=== PATIENT | male | born 1955 | race Caucasian/White ===

== ENCOUNTER 2020-05-31 15:24 | Inpatient (IN) ==
[2020-06-01] MEDS ORDERED: Nystatin Cream 15 GM TUBE TP PRN (17:35)
[2020-06-01] MEDS ORDERED: Warfarin perPT PO PRN (18:00)
[2020-06-01] MEDS ORDERED: Dextrose Gel 15 GM/37.5 ML TUBE PO PRN ×2 (18:28)
[2020-06-01] MEDS ORDERED: D5% in Water 1,000 ML IVC PRN (18:28)
[2020-06-01] MEDS ORDERED: *HR* Dextrose 50 % in Water (Vial) 50 ML VIAL IVP PRN (18:28)
[2020-06-01] MEDS ORDERED: *HR* Warfarin 3 MG TABLET PO SCH (19:00)
[2020-06-01] MEDS: Lactobacillus 1 EACH CAP.SPRINK PO SCH (20:55)
[2020-06-01] MEDS: Bumetanide 1 MG TABLET PO SCH (20:55)
[2020-06-01] MEDS: Insulin LISPRO 300 UNITS/3 ML VIAL SUBQ SCH (20:59)
[2020-06-01] MEDS ORDERED: FLAXSEED OIL 2000 MG PO SCH (21:00)
[2020-06-01] MEDS: QUINIDINE GLUCONATE 324 MG PO SCH (21:00)
[2020-06-02 05:54] LABS: Hematocrit 33.4 % (37.5-50.1); Hemoglobin 10.7 g/dL (12.9-16.9); Mean Corpuscular Hemoglobin 26.8 pg (28.0-33.3); Mean Corpuscular Volume 83.7 fL (83.0-100.0); Mean Platelet Volume 10.9 fL (9.4-12.4); Platelet Count 203 K/mcL (140-400); Red Blood Count 3.99 M/mcL (4.19-5.50); Red Cell Distribution Width 20.4 % (11.5-14.5); White Blood Count 5.7 K/mcL (4.3-11.1)
[2020-06-02 06:30] LABS: BUN/Creatinine Ratio 19 (6-26); Blood Urea Nitrogen 13 mg/dL (8-23); Calcium 8.3 mg/dL (8.6-10.3); Carbon Dioxide 30 mEq/L (23-29); Chloride 103 mEq/L (98-107); Glucose 119 mg/dL (70-105); Osmolality,Calculated 291 (280-300); Potassium 3.9 mEq/L (3.5-5.1); Sodium 140 mEq/L (136-145); eGFR For African Americans > 60 (> 60); eGFR For Non-African Americans > 60 (> 60)
[2020-06-02 06:31] LABS: INR 2.3; Prothrombin Time 25.7 Seconds (9.4-12.1)
[2020-06-02] MEDS: Insulin LISPRO 300 UNITS/3 ML VIAL SUBQ SCH ×4 (08:33→20:58)
[2020-06-02] MEDS: CABOZANTINIB S MALATE 20 MG PO SCH (08:38)
[2020-06-02] MEDS: *HR* Digoxin 0.125 MG TABLET PO SCH (08:38)
[2020-06-02] MEDS: Lactobacillus 1 EACH CAP.SPRINK PO SCH ×2 (08:38→20:54)
[2020-06-02] MEDS: carvediloL 6.25 MG TABLET PO SCH ×2 (08:38→16:43)
[2020-06-02] MEDS: Bumetanide 1 MG TABLET PO SCH ×2 (08:38→16:43)
[2020-06-02] MEDS: QUINIDINE GLUCONATE 324 MG PO SCH ×2 (08:39→21:00)
[2020-06-02] MEDS: levoFLOXacin 750 MG TABLET PO SCH (16:44)
[2020-06-02] MEDS ORDERED: *HR* Warfarin 3 MG TABLET PO ONE (18:00)
[2020-06-02] MEDS: Acetaminophen 325 MG TABLET PO PRN (20:54)
[2020-06-02] MEDS: Doxycycline 100 MG CAPSULE PO SCH (20:54)
[2020-06-03 07:17] LABS: Prothrombin Time 23.1 Seconds (9.4-12.1)
[2020-06-03] MEDS: Insulin LISPRO 300 UNITS/3 ML VIAL SUBQ SCH ×4 (08:03→21:26)
[2020-06-03] MEDS: Lactobacillus 1 EACH CAP.SPRINK PO SCH ×2 (08:07→21:24)
[2020-06-03] MEDS: levoFLOXacin 750 MG TABLET PO SCH (08:07)
[2020-06-03] MEDS: carvediloL 6.25 MG TABLET PO SCH ×2 (08:07→17:01)
[2020-06-03] MEDS: Doxycycline 100 MG CAPSULE PO SCH ×2 (08:07→21:25)
[2020-06-03] MEDS: *HR* Digoxin 0.125 MG TABLET PO SCH (08:07)
[2020-06-03] MEDS: Bumetanide 1 MG TABLET PO SCH ×2 (08:07→17:00)
[2020-06-03] MEDS: CABOZANTINIB S MALATE 20 MG PO SCH (08:08)
[2020-06-03] MEDS: QUINIDINE GLUCONATE 324 MG PO SCH ×2 (08:08→21:26)
[2020-06-03] MEDS ORDERED: *HR* Warfarin 2 MG TABLET PO ONE (18:00)
[2020-06-03] MEDS: Acetaminophen 325 MG TABLET PO PRN (21:24)
[2020-06-04] MEDS: Acetaminophen 325 MG TABLET PO PRN ×3 (05:42→23:37)
[2020-06-04 08:09] LABS: INR 1.9
[2020-06-04] MEDS: Bumetanide 1 MG TABLET PO SCH ×2 (08:34→16:53)
[2020-06-04] MEDS: *HR* Digoxin 0.125 MG TABLET PO SCH (08:34)
[2020-06-04] MEDS: Doxycycline 100 MG CAPSULE PO SCH ×2 (08:34→20:36)
[2020-06-04] MEDS: Lactobacillus 1 EACH CAP.SPRINK PO SCH ×2 (08:34→20:36)
[2020-06-04] MEDS: carvediloL 6.25 MG TABLET PO SCH ×2 (08:34→16:53)
[2020-06-04] MEDS: levoFLOXacin 750 MG TABLET PO SCH (08:34)
[2020-06-04] MEDS: QUINIDINE GLUCONATE 324 MG PO SCH ×2 (08:35→20:40)
[2020-06-04] MEDS: Insulin LISPRO 300 UNITS/3 ML VIAL SUBQ SCH ×4 (08:35→20:34)
[2020-06-04] MEDS: CABOZANTINIB S MALATE 20 MG PO SCH (08:36)
[2020-06-04] MEDS ORDERED: *HR* Warfarin 2 MG TABLET PO ONE (18:00)
[2020-06-05 07:15] LABS: INR 1.8; Prothrombin Time 20.9 Seconds (9.4-12.1)
[2020-06-05] MEDS: carvediloL 6.25 MG TABLET PO SCH ×2 (07:54→17:07)
[2020-06-05] MEDS: levoFLOXacin 750 MG TABLET PO SCH (07:54)
[2020-06-05] MEDS: Doxycycline 100 MG CAPSULE PO SCH ×2 (07:54→21:37)
[2020-06-05] MEDS: Lactobacillus 1 EACH CAP.SPRINK PO SCH ×2 (07:54→21:37)
[2020-06-05] MEDS: Bumetanide 1 MG TABLET PO SCH ×2 (07:54→17:07)
[2020-06-05] MEDS: CABOZANTINIB S MALATE 20 MG PO SCH (07:55)
[2020-06-05] MEDS: *HR* Digoxin 0.125 MG TABLET PO SCH (07:55)
[2020-06-05] MEDS: Insulin LISPRO 300 UNITS/3 ML VIAL SUBQ SCH ×4 (07:55→21:42)
[2020-06-05] MEDS: QUINIDINE GLUCONATE 324 MG PO SCH ×2 (07:55→21:37)
[2020-06-05] MEDS: Acetaminophen 325 MG TABLET PO PRN ×2 (17:07→23:35)
[2020-06-05] MEDS ORDERED: *HR* Warfarin 5 MG TABLET PO ONE (18:00)
[2020-06-06 06:27] LABS: Prothrombin Time 22.5 Seconds (9.4-12.1)
[2020-06-06] MEDS: Insulin LISPRO 300 UNITS/3 ML VIAL SUBQ SCH ×4 (07:47→20:50)
[2020-06-06] MEDS: Lactobacillus 1 EACH CAP.SPRINK PO SCH ×2 (07:48→20:50)
[2020-06-06] MEDS: levoFLOXacin 750 MG TABLET PO SCH (07:48)
[2020-06-06] MEDS: Bumetanide 1 MG TABLET PO SCH ×2 (07:48→16:40)
[2020-06-06] MEDS: Doxycycline 100 MG CAPSULE PO SCH ×2 (07:48→20:50)
[2020-06-06] MEDS: carvediloL 6.25 MG TABLET PO SCH ×2 (07:48→16:40)
[2020-06-06] MEDS: *HR* Digoxin 0.125 MG TABLET PO SCH (07:48)
[2020-06-06] MEDS: QUINIDINE GLUCONATE 324 MG PO SCH ×2 (07:50→20:50)
[2020-06-06] MEDS: CABOZANTINIB S MALATE 20 MG PO SCH (07:52)
[2020-06-06] MEDS: SEMAGLUTIDE 1 MG SQ SCH (16:41)
[2020-06-06] MEDS: Acetaminophen 325 MG TABLET PO PRN (17:36)
[2020-06-06] MEDS ORDERED: *HR* Warfarin 5 MG TABLET PO ONE (18:00)
[2020-06-07] MEDS: Acetaminophen 325 MG TABLET PO PRN ×3 (06:52→23:13)
[2020-06-07 07:04] LABS: INR 2.1; Prothrombin Time 23.3 Seconds (9.4-12.1)
[2020-06-07] MEDS: Insulin LISPRO 300 UNITS/3 ML VIAL SUBQ SCH ×4 (07:56→20:16)
[2020-06-07] MEDS: *HR* Digoxin 0.125 MG TABLET PO SCH (07:56)
[2020-06-07] MEDS: Lactobacillus 1 EACH CAP.SPRINK PO SCH ×2 (07:56→20:15)
[2020-06-07] MEDS: Doxycycline 100 MG CAPSULE PO SCH ×2 (07:56→20:15)
[2020-06-07] MEDS: carvediloL 6.25 MG TABLET PO SCH ×2 (07:56→16:48)
[2020-06-07] MEDS: Bumetanide 1 MG TABLET PO SCH ×2 (07:57→16:48)
[2020-06-07] MEDS: QUINIDINE GLUCONATE 324 MG PO SCH ×2 (07:57→20:16)
[2020-06-07] MEDS: levoFLOXacin 750 MG TABLET PO SCH (07:57)
[2020-06-07] MEDS: CABOZANTINIB S MALATE 20 MG PO SCH (09:43)
[2020-06-07] MEDS ORDERED: *HR* Warfarin 2 MG TABLET PO ONE (18:00)
[2020-06-08 06:26] LABS: Basophils % 0.8 %; Eosinophils # 0.2 K/mcL (0.0-0.6); Eosinophils % 2.9 %; Hematocrit 35.1 % (37.5-50.1); Hemoglobin 11.4 g/dL (12.9-16.9); Immature Granulocytes % 0.8 % (0-4); Mean Corpuscular HGB Conc 32.5 g/dL (31.6-35.5); Mean Corpuscular Hemoglobin 27.4 pg (28.0-33.3); Mean Corpuscular Volume 84.4 fL (83.0-100.0); Mean Platelet Volume 11.2 fL (9.4-12.4); Monocytes # 0.6 K/mcL (0.0-1.3); Monocytes % 12.4 %; Neutrophils # 3.3 K/mcL (1.6-8.9); Platelet Count 205 K/mcL (140-400); Red Blood Count 4.16 M/mcL (4.19-5.50); Red Cell Distribution Width 20.7 % (11.5-14.5); Segmented Neutrophils % 64.1 %; White Blood Count 5.2 K/mcL (4.3-11.1)
[2020-06-08 06:38] LABS: INR 2.1; Prothrombin Time 24.2 Seconds (9.4-12.1)
[2020-06-08 06:43] LABS: BUN/Creatinine Ratio 21 (6-26); Blood Urea Nitrogen 16 mg/dL (8-23); Calcium 8.6 mg/dL (8.6-10.3); Carbon Dioxide 29 mEq/L (23-29); Chloride 100 mEq/L (98-107); Glucose 166 mg/dL (70-105); Osmolality,Calculated 291 (280-300); Potassium 3.8 mEq/L (3.5-5.1); Sodium 138 mEq/L (136-145); eGFR For African Americans > 60 (> 60); eGFR For Non-African Americans > 60 (> 60)
[2020-06-08] MEDS: Bumetanide 1 MG TABLET PO SCH ×2 (07:39→16:46)
[2020-06-08] MEDS: Lactobacillus 1 EACH CAP.SPRINK PO SCH ×2 (07:39→19:42)
[2020-06-08] MEDS: QUINIDINE GLUCONATE 324 MG PO SCH ×2 (07:40→19:42)
[2020-06-08] MEDS: *HR* Digoxin 0.125 MG TABLET PO SCH (07:40)
[2020-06-08] MEDS: carvediloL 6.25 MG TABLET PO SCH ×2 (07:40→16:47)
[2020-06-08] MEDS: CABOZANTINIB S MALATE 20 MG PO SCH (07:41)
[2020-06-08] MEDS: Insulin LISPRO 300 UNITS/3 ML VIAL SUBQ SCH ×4 (07:45→19:42)
[2020-06-08] MEDS ORDERED: Saline Nasal Spray 44 ML BOTTLE NS PRN (13:22)
[2020-06-08] MEDS ORDERED: *HR* Warfarin 2 MG TABLET PO ONE (18:00)
[2020-06-08] MEDS: Acetaminophen 325 MG TABLET PO PRN (22:57)
[2020-06-09 07:58] LABS: INR 1.9; Prothrombin Time 22.1 Seconds (9.4-12.1)
[2020-06-09] MEDS: Lactobacillus 1 EACH CAP.SPRINK PO SCH ×2 (09:03→21:30)
[2020-06-09] MEDS: carvediloL 6.25 MG TABLET PO SCH ×2 (09:04→16:53)
[2020-06-09] MEDS: Bumetanide 1 MG TABLET PO SCH ×2 (09:04→16:53)
[2020-06-09] MEDS: *HR* Digoxin 0.125 MG TABLET PO SCH (09:04)
[2020-06-09] MEDS: QUINIDINE GLUCONATE 324 MG PO SCH ×2 (09:05→21:29)
[2020-06-09] MEDS: CABOZANTINIB S MALATE 20 MG PO SCH (09:05)
[2020-06-09] MEDS: Insulin LISPRO 300 UNITS/3 ML VIAL SUBQ SCH ×4 (09:09→21:31)
[2020-06-09] MEDS ORDERED: *HR* Warfarin 5 MG TABLET PO ONE (18:00)
[2020-06-09] MEDS: Acetaminophen 325 MG TABLET PO PRN (21:29)
[2020-06-10 07:11] LABS: INR 2.1; Prothrombin Time 23.5 Seconds (9.4-12.1)
[2020-06-10] MEDS: Bumetanide 1 MG TABLET PO SCH ×2 (08:30→17:23)
[2020-06-10] MEDS: *HR* Digoxin 0.125 MG TABLET PO SCH (08:30)
[2020-06-10] MEDS: carvediloL 6.25 MG TABLET PO SCH ×2 (08:30→17:23)
[2020-06-10] MEDS: Lactobacillus 1 EACH CAP.SPRINK PO SCH ×2 (08:30→21:04)
[2020-06-10] MEDS: QUINIDINE GLUCONATE 324 MG PO SCH ×2 (08:31→21:22)
[2020-06-10] MEDS: CABOZANTINIB S MALATE 20 MG PO SCH (08:31)
[2020-06-10] MEDS: Insulin LISPRO 300 UNITS/3 ML VIAL SUBQ SCH ×4 (08:32→21:04)
[2020-06-10] MEDS ORDERED: *HR* Warfarin 5 MG TABLET PO ONE (18:00)
[2020-06-11 06:11] LABS: INR 1.9; Prothrombin Time 21.9 Seconds (9.4-12.1)
[2020-06-11] MEDS: Lactobacillus 1 EACH CAP.SPRINK PO SCH ×2 (07:32→20:02)
[2020-06-11] MEDS: *HR* Digoxin 0.125 MG TABLET PO SCH (07:32)
[2020-06-11] MEDS: QUINIDINE GLUCONATE 324 MG PO SCH ×2 (07:32→20:03)
[2020-06-11] MEDS: carvediloL 6.25 MG TABLET PO SCH ×2 (07:32→17:06)
[2020-06-11] MEDS: CABOZANTINIB S MALATE 20 MG PO SCH (07:32)
[2020-06-11] MEDS: Bumetanide 1 MG TABLET PO SCH ×2 (07:32→17:07)
[2020-06-11] MEDS: Insulin LISPRO 300 UNITS/3 ML VIAL SUBQ SCH ×4 (07:37→20:04)
[2020-06-11] MEDS ORDERED: *HR* Warfarin 5 MG TABLET PO ONE (18:00)
[2020-06-11] MEDS: Acetaminophen 325 MG TABLET PO PRN (20:02)
[2020-06-12 07:37] LABS: INR 2.1; Prothrombin Time 24.2 Seconds (9.4-12.1)
[2020-06-12] MEDS: *HR* Digoxin 0.125 MG TABLET PO SCH (08:10)
[2020-06-12] MEDS: Bumetanide 1 MG TABLET PO SCH ×2 (08:10→17:33)
[2020-06-12] MEDS: Lactobacillus 1 EACH CAP.SPRINK PO SCH ×2 (08:10→21:06)
[2020-06-12] MEDS: carvediloL 6.25 MG TABLET PO SCH ×2 (08:10→17:33)
[2020-06-12] MEDS: QUINIDINE GLUCONATE 324 MG PO SCH ×2 (08:10→21:08)
[2020-06-12] MEDS: CABOZANTINIB S MALATE 20 MG PO SCH (08:12)
[2020-06-12] MEDS: Insulin LISPRO 300 UNITS/3 ML VIAL SUBQ SCH ×4 (08:12→21:07)
[2020-06-12] MEDS ORDERED: *HR* Warfarin 2 MG TABLET PO ONE (18:00)
[2020-06-13 07:07] LABS: INR 2.1; Prothrombin Time 23.9 Seconds (9.4-12.1)
[2020-06-13] MEDS: Lactobacillus 1 EACH CAP.SPRINK PO SCH ×2 (09:04→19:58)
[2020-06-13] MEDS: Bumetanide 1 MG TABLET PO SCH ×2 (09:04→17:00)
[2020-06-13] MEDS: carvediloL 6.25 MG TABLET PO SCH ×2 (09:05→16:59)
[2020-06-13] MEDS: *HR* Digoxin 0.125 MG TABLET PO SCH (09:10)
[2020-06-13] MEDS: Insulin LISPRO 300 UNITS/3 ML VIAL SUBQ SCH ×4 (09:12→19:59)
[2020-06-13] MEDS: QUINIDINE GLUCONATE 324 MG PO SCH ×2 (09:15→19:59)
[2020-06-13] MEDS: CABOZANTINIB S MALATE 20 MG PO SCH (09:20)
[2020-06-13] MEDS: SEMAGLUTIDE 1 MG SQ SCH (17:02)
[2020-06-13] MEDS ORDERED: *HR* Warfarin 2 MG TABLET PO ONE (18:00)
[2020-06-14 07:39] LABS: INR 2.1; Prothrombin Time 23.8 Seconds (9.4-12.1)
[2020-06-14] MEDS: *HR* Digoxin 0.125 MG TABLET PO SCH (08:50)
[2020-06-14] MEDS: Lactobacillus 1 EACH CAP.SPRINK PO SCH ×2 (08:51→21:36)
[2020-06-14] MEDS: Insulin LISPRO 300 UNITS/3 ML VIAL SUBQ SCH ×4 (08:51→21:37)
[2020-06-14] MEDS: carvediloL 6.25 MG TABLET PO SCH ×2 (08:51→16:42)
[2020-06-14] MEDS: Bumetanide 1 MG TABLET PO SCH ×2 (08:51→16:43)
[2020-06-14] MEDS: QUINIDINE GLUCONATE 324 MG PO SCH ×2 (08:52→21:37)
[2020-06-14] MEDS: CABOZANTINIB S MALATE 20 MG PO SCH (08:58)
[2020-06-14] MEDS ORDERED: *HR* Warfarin 2 MG TABLET PO ONE (18:00)
[2020-06-15 06:34] LABS: Prothrombin Time 22.4 Seconds (9.4-12.1)
[2020-06-15 06:54] VITALS: BP 107/68
[2020-06-15] MEDS: Bumetanide 1 MG TABLET PO SCH (07:51)
[2020-06-15] MEDS: *HR* Digoxin 0.125 MG TABLET PO SCH (07:51)
[2020-06-15] MEDS: Lactobacillus 1 EACH CAP.SPRINK PO SCH (07:51)
[2020-06-15] MEDS: QUINIDINE GLUCONATE 324 MG PO SCH (07:52)
[2020-06-15] MEDS: carvediloL 6.25 MG TABLET PO SCH (07:52)
[2020-06-15] MEDS: CABOZANTINIB S MALATE 20 MG PO SCH (07:53)
[2020-06-15] MEDS: Insulin LISPRO 300 UNITS/3 ML VIAL SUBQ SCH ×2 (07:55→11:49)
[2020-06-15] MEDS ORDERED: *HR* Warfarin 5 MG TABLET PO ONE (18:00)
== END 2020-06-15 13:10 | disposition home health service (06) | DRG 560 ==
LOC: INPPIK 06-01 17:56
PROVIDERS: ADMIT Family Medicine; ATTEND Family Medicine